=== PATIENT | female | born 1965 | race Caucasian/White ===

== ENCOUNTER 2022-06-01 16:54 | Emergency (ER) | payer OTHER ==
[~2022-06-01] VITALS: Ht 154.9 cm; Wt 60.8 kg
[~2022-06-01 16:54] MED LIST: LACT1CAP92 PO; LEVO-481 PO; METF-713; VITB12I; [UNRECOGNIZED DRUG - CODE]
[2022-06-01 17:18] VITALS: BP 166/64
--- NOTE | 2022-06-01 17:30 | NUR ---
56 Y/O FEMALE BIB SELF C/O UTI S/S BURNING URINATION, FREQUENT URINATION, NAUSEA AND VOMITING X 3DAYS. DENIES ANY ABD PAIN, DENIES ANY MEDICATION FOR PAIN. DENIES ANY BLOOD IN URINE OR VOMITUS. ALLERGY: NKA PMH: DM, HDL
[2022-06-01] MEDS ORDERED: ONDANSETRON 4 MG/2 ML VIAL IVP SCH (18:15)
[2022-06-01] MEDS ORDERED: KETOROLAC 30 MG/ML VIAL IVP SCH (18:15)
[2022-06-01] MEDS ORDERED: NACL 0.9% 1,000 ML IV ONE ×2 (18:15→18:55)
--- NOTE | 2022-06-01 18:31 | NUR ---
PT WALKED WITH STEADY GAIT TO BED 6.
[2022-06-01 18:32] LABS: BASOPHILS % (AUTO) 0.4 % (0.0-2.0); EOSINOPHILS % (AUTO) 0.5 % (0.0-4.0); HEMATOCRIT 35.7 % (36-48); HEMOGLOBIN 12.2 g/dL (12.0-16.0); LYMPHOCYTES # (AUTO) 2.7 K/uL (2.5-16.5); LYMPHOCYTES % (AUTO) 29.8 % (20.5-51.1); MEAN CORPUSCULAR HEMOGLOBIN 29 pg (27-31); MEAN CORPUSCULAR HGB CONC 34 g/dL (33-37); MEAN CORPUSCULAR VOLUME 85.6 fL (80-94); MONOCYTES # (AUTO) 0.4 K/uL (0.8-1.0); MONOCYTES % (AUTO) 4.9 % (1.7-9.3); NEUTROPHILS # (AUTO) 5.8 K/uL (1.8-7.7); NEUTROPHILS % (AUTO) 64.4 % (42.2-75.2); PLATELET COUNT (AUTO) 294 K/uL (140-450); RED BLOOD CELL COUNT(AUTO) 4.16 MIL/uL (4.20-5.40); WHITE BLOOD COUNT (AUTO) 9.1 K/uL (4.8-10.8)
--- NOTE | 2022-06-01 18:35 | NUR ---
56YO FEMALE PT C/O BURNING 7/10 LOWER ABDOMINAL AND BACK PAIN X4 DAYS. PT STATES BURNING DYSURIA , DENIES BLOOD. STATES VOMITING YESTERDAY AND X2 TODAY ,DENIES BLOOD. DENIES DIARRHEA , CHEST PAIN OR SOB. DENIES RELIEF AFTER TAKING TRAMADOL. REPORTS REOCCURING KIDNEY STONES AND HAS PENDING APPT W/ UROLOGIST IN JUL BUT CAME TO ER DUE TO INCREASED PAIN. ABDOMEN PRESENTS BLOATED AND TENDER TO TOUCH, ACTIVE X4. BACK NON TENDER TO TOUCH. PT AAOX4, NO VISIBLE DISTRESS. RESPIRATIONS EVEN AND UNLABORED. HOB POSITIONED PER COMFORT, BED AT LOWEST POSITION, BED HX: DIABETES NKA
--- NOTE | 2022-06-01 18:41 | NUR ---
PT TAKEN TO CT VIA WHEELCHAIR
--- NOTE | 2022-06-01 18:51 | NUR ---
PT BROGHT BACK FROM CT VIA WHEELCHAIR
[2022-06-01 19:00] LABS: ALBUMIN 3.5 g/dL (3.4-5.0); ANION GAP 11.6 (8-16); CARBON DIOXIDE 28.4 mmol/L (21-32); CREATININE 0.9 mg/dL (0.6-1.3); TOTAL BILIRUBIN 0.3 mg/dL (0.0-1.0)
[2022-06-01 19:04] LABS: APPEARANCE,URINE SL CLOUDY (CLEAR); BILIRUBIN,URINE NEGATIVE (NEGATIVE); BLOOD, URINE 2+ (NEGATIVE); COLOR,URINE YELLOW (YELLOW); PH,URINE 8.5 (5.0-9.0); UGLUCOSE NEGATIVE (NEGATIVE)
[2022-06-01 19:05] LABS: LEUKOCYTE ESTERASE ,URINE 3+ (NEGATIVE); NITRITE, URINE NEGATIVE (NEGATIVE)
--- NOTE | 2022-06-01 19:15 | NUR ---
RECIEVED REPORT FROM RENEE CAGE
--- NOTE | 2022-06-01 19:25 | NUR ---
REPORT GIVEN TO CHETAN CAGE. TRANSFER OF CARE AT THIS TIME
[2022-06-01] MEDS ORDERED: METOCLOPRAMIDE 10 MG/2 ML INJ VIAL IVP ONE (19:30)
--- NOTE | 2022-06-01 19:30 | NUR ---
PT RESTING IN BED ON BEDSIDE JUMPBASTING FACING BASTER. PT C/O ABD PAIN N/V X1 DAY. PAIN LEVEL /. DENIES DIARRHEA OR FEVER . DENIES CP OR SOB. PT IN FRISIAN SPEAKING. HOB ELEVATED. SIDE RAIL UP X1. PENDING DC PAPERWORK. NKDA DM KIDNEY STONES
[2022-06-01] MEDS ORDERED: CIPR500T4 PO (19:34)
[2022-06-01] MEDS ORDERED: PHEN-1877 PO (19:34)
[2022-06-01 19:37] LABS: TRICHOMONAS,URINE None Seen /HPF (None Seen); YEAST,URINE None Seen /HPF (None Seen)
[2022-06-01] MEDS ORDERED: cefTRIAXone 1,000 MG VIAL ONE (20:10)
[2022-06-01 21:16] VITALS: BP 134/54
--- NOTE | 2022-06-01 21:16 | NUR ---
Patient discharged with v/s stable. Written and verbal after care instructions given and explained. Patient alert, oriented and verbalized understanding of instructions. Ambulatory with steady gait. All questions addressed prior to discharge. ID band removed. Patient advised to follow up with PMD. Rx of CIPRO PYRIDUIM given.
--- NOTE | 2022-06-01 21:23 | NUR ---
The patient's care was reviewed and supervised by Felicity Gonzalze RN.
== END 2022-06-01 21:16 | disposition home or self-care (01) ==
LOC: MED 16:54
DX: N39.0 Urinary tract infection, site not specified (principal); R11.2 Nausea with vomiting, unspecified; E11.9 Type 2 diabetes mellitus without complications; Z79.84 Long term (current) use of oral hypoglycemic drugs; Z79.899 Other long term (current) drug therapy
CPT/HCPCS: 36415; 74176; 80053; 81001; 83690; 85025; 87086; 96361; 96365; 96375; 99285; J0696; J1885; J2405; J2765; J7030

== ENCOUNTER 2022-12-15 11:58 | Emergency (ER) | payer OTHER ==
[~2022-12-15] VITALS: Ht 157.5 cm; Wt 59.4 kg
[~2022-12-15 11:58] MED LIST changes: +CIPR500T4 PO; +PHEN-1877 PO
[2022-12-15 12:14] VITALS: BP 150/77
[2022-12-15 13:41] LABS: APPEARANCE,URINE CLEAR (CLEAR); BILIRUBIN,URINE NEGATIVE (NEGATIVE); BLOOD, URINE TRACE-I (NEGATIVE); COLOR,URINE YELLOW (YELLOW); LEUKOCYTE ESTERASE ,URINE 2+ (NEGATIVE); NITRITE, URINE NEGATIVE (NEGATIVE); UGLUCOSE 3+ (NEGATIVE)
[2022-12-15 13:54] LABS: RBC,URINE 0-5 /HPF (0-5); WBC,URINE 80-100 /HPF (0-5)
[2022-12-15 15:00] LABS: BASOPHILS # (AUTO) 0.1 K/uL (0.00-0.22); BASOPHILS % (AUTO) 0.9 % (0.0-2.0); EOSINOPHILS # (AUTO) 0.1 K/uL (0-0.4); EOSINOPHILS % (AUTO) 1.4 % (0.0-4.0); HEMATOCRIT 37.2 % (36-48); HEMOGLOBIN 12.3 g/dL (12.0-16.0); LYMPHOCYTES # (AUTO) 3.6 K/uL (2.5-16.5); LYMPHOCYTES % (AUTO) 46.5 % (20.5-51.1); MEAN CORPUSCULAR HEMOGLOBIN 28 pg (27-31); MEAN CORPUSCULAR HGB CONC 33 g/dL (33-37); MEAN CORPUSCULAR VOLUME 84.6 fL (80-94); MONOCYTES # (AUTO) 0.3 K/uL (0.8-1.0); MONOCYTES % (AUTO) 3.6 % (1.7-9.3); NEUTROPHILS # (AUTO) 3.7 K/uL (1.8-7.7); NEUTROPHILS % (AUTO) 47.6 % (42.2-75.2); PLATELET COUNT (AUTO) 351 K/uL (140-450); RED CELL DISTRIBUTION WIDTH 13.9 % (11.6-13.7); WHITE BLOOD COUNT (AUTO) 7.7 K/uL (4.8-10.8)
[2022-12-15 15:25] LABS: ALBUMIN 3.9 g/dL (3.4-5.0); ANION GAP 14.3 (8-16); CARBON DIOXIDE 24.8 mmol/L (21-32); CREATININE 1.3 mg/dL (0.6-1.3); POTASSIUM 4.1 mmol/L (3.5-5.1); TOTAL BILIRUBIN 0.3 mg/dL (0.0-1.0)
[2022-12-15] MEDS ORDERED: cefTRIAXone 1,000 MG in LIDOCAINE MPF 1% 2.1 ML IM ONE (16:25)
[2022-12-15] MEDS ORDERED: oxyCODONE/APAP 5/325 MG 1 TAB TAB PO ONE (16:25)
[2022-12-15] MEDS ORDERED: ONDANSETRON 4 MG ODT PO ONE (16:25)
[2022-12-15] MEDS ORDERED: CEPH-588 PO (16:46)
[2022-12-15] MEDS ORDERED: ACET-10509 PO (16:46)
[2022-12-15] MEDS ORDERED: ACET-5629 PO (16:46)
[2022-12-15] MEDS ORDERED: ONDA-188 PO (16:46)
[2022-12-15] MEDS ORDERED: PYR100 PO (16:46)
[2022-12-15] MEDS ORDERED: cefTRIAXone 1,000 MG VIAL ONE (17:02)
--- NOTE | 2022-12-15 17:13 | NUR ---
ASSUMED PATIENT CARE FOR DC INSTRUCTIONS, Patient discharged with v/s stable. Written and verbal after care instructions given and explained. Patient alert, oriented and verbalized understanding of instructions. Ambulatory with steady gait. All questions addressed prior to discharge. ID band removed. Patient advised to follow up with PMD. Rx of TYLENOL, PERCOCET, KEFLEX, ZOFRAN, PYRIDIUM given. Patient educated on indication of medication including possible reaction and side effects. Opportunity to ask questions provided and answered.
[2022-12-15 17:14] VITALS: BP 144/65
== END 2022-12-15 17:13 | disposition home or self-care (01) ==
LOC: MED 11:58
DX: N12 Tubulo-interstitial nephritis, not specified as acute or chronic (principal); E11.65 Type 2 diabetes mellitus with hyperglycemia; K82.9 Disease of gallbladder, unspecified; Z79.899 Other long term (current) drug therapy; Z90.710 Acquired absence of both cervix and uterus; Z98.890 Other specified postprocedural states
CPT/HCPCS: 36415; 74176; 80053; 81001; 83690; 85025; 87086; 96372; 99285; J0696; Q0162

== ENCOUNTER 2023-03-06 13:21 | Inpatient (IN) | payer OTHER ==
[~2023-03-06] VITALS: Ht 157.5 cm; Wt 64.9 kg
[~2023-03-06 13:21] MED LIST changes: +ACET-10509 PO; +ACET-5629 PO; +CEPH-588 PO; +ONDA-188 PO; +PYR100 PO
[2023-03-06 13:25] VITALS: BP 133/85; PULSE 93; RESP 18; TEMP 97.7; O2SAT 100
--- NOTE | 2023-03-06 13:33 | NUR ---
pt ambulatory to bed 12 accompanied by daughter
--- NOTE | 2023-03-06 13:35 | NUR ---
pt daughter cale phone number [facility] [phone], or Scott kelley [phone]
[2023-03-06 13:57] LABS: APPEARANCE,URINE CLEAR (CLEAR); BILIRUBIN,URINE NEGATIVE (NEGATIVE); BLOOD, URINE 3+ (NEGATIVE); COLOR,URINE YELLOW (YELLOW); LEUKOCYTE ESTERASE ,URINE 2+ (NEGATIVE); NITRITE, URINE NEGATIVE (NEGATIVE); UGLUCOSE NEGATIVE (NEGATIVE)
[2023-03-06 14:11] LABS: BASOPHILS # (AUTO) 0.1 K/uL (0.00-0.22); BASOPHILS % (AUTO) 0.6 % (0.0-2.0); EOSINOPHILS # (AUTO) 0.1 K/uL (0-0.4); EOSINOPHILS % (AUTO) 0.5 % (0.0-4.0); HEMATOCRIT 35.9 % (36-48); LYMPHOCYTES # (AUTO) 2.2 K/uL (2.5-16.5); LYMPHOCYTES % (AUTO) 16.9 % (20.5-51.1); MEAN CORPUSCULAR HEMOGLOBIN 29 pg (27-31); MEAN CORPUSCULAR HGB CONC 33 g/dL (33-37); MEAN CORPUSCULAR VOLUME 85.4 fL (80-94); MONOCYTES # (AUTO) 0.3 K/uL (0.8-1.0); MONOCYTES % (AUTO) 2.2 % (1.7-9.3); NEUTROPHILS # (AUTO) 10.4 K/uL (1.8-7.7); NEUTROPHILS % (AUTO) 79.8 % (42.2-75.2); PLATELET COUNT (AUTO) 369 K/uL (140-450); RED CELL DISTRIBUTION WIDTH 13.9 % (11.6-13.7)
[2023-03-06 14:17] LABS: RBC,URINE 20-50 /HPF (0-5)
[2023-03-06 14:23] LABS: ALBUMIN 3.5 g/dL (3.4-5.0); CARBON DIOXIDE 26.6 mmol/L (21-32); POTASSIUM 4.6 mmol/L (3.5-5.1); TOTAL BILIRUBIN 0.2 mg/dL (0.0-1.0)
[2023-03-06] MEDS ORDERED: ONDANSETRON 4 MG/2 ML VIAL IVP ONE ×2 (14:25→18:00)
[2023-03-06] MEDS ORDERED: MORPHINE SULFATE 4 MG/ML SYR IVP ONE (14:25)
[2023-03-06] MEDS ORDERED: NACL 0.9% 1,000 ML IV ONE ×2 (14:25→15:55)
[2023-03-06] MEDS ORDERED: MORPHINE SULFATE 4 MG/ML SYR IM ONE (14:25)
[2023-03-06] MEDS ORDERED: cefTRIAXone 1,000 MG VIAL ONE (17:45)
[2023-03-06] MEDS ORDERED: MORPHINE SULFATE 2 MG/ML SYR IVP ONE (18:00)
--- NOTE | 2023-03-06 19:31 | NUR ---
pt is malay speaker and resting on the bed. pt denies pain.
--- NOTE | 2023-03-06 19:45 | NUR ---
accucheck 111
--- NOTE | 2023-03-06 19:46 | NUR ---
is at the bedside
[2023-03-06] MEDS: NACL 0.9% 1,000 ML IV SCH (20:50)
[2023-03-06] MEDS ORDERED: ACETAMINOPHEN 325 MG TAB PO PRN (20:50)
[2023-03-06] MEDS ORDERED: MORPHINE SULFATE 2 MG/ML SYR IVP PRN (20:50)
[2023-03-06] MEDS ORDERED: LORazepam 2 MG/ML VIAL IVP PRN (20:50)
[2023-03-06] MEDS ORDERED: ONDANSETRON 4 MG/2 ML VIAL IVP PRN (20:50)
[2023-03-06] MEDS ORDERED: OMEP20EC11 PO (22:05)
[2023-03-06] MEDS ORDERED: SIMV-371 PO (22:05)
[2023-03-06] MEDS ORDERED: EZET10TA14 PO (22:05)
[2023-03-06] MEDS ORDERED: INSU10SU2 SC (22:05)
--- NOTE | 2023-03-06 23:15 | NUR ---
RECEIVED CALL FROM ER NURSE DEO CABRALES. "COMING WITH PT FOR 119B. PYELONEPHRITIS JENAE, WILL GIVE REPORT UPON ARRIVAL"
[2023-03-06 23:30] VITALS: PULSE 91
--- NOTE | 2023-03-06 23:30 | NUR ---
RECEIVED PT FROM ER VIA [facility] TO 119B. DX: PYELONEPHRITIS; CHIEF C/0: ABD PAIN MIDLINE RADIATING TO BACK X 4 DAYS, NOW 4/10 TO 3/10 AND TOLERABLE. NAUSEA WITHOUT EMESIS. HX: UTI, DIABETES MELITIS, KIDNEY STONES. A/OX4. WELSH SPEAKING. MINIMAL INDONESIAN COMPREHENSION.DENIES CHEST PAIN. 20 GA RAC/SL. ENDORSED TO HANG NS @ 125ML. CONTINENT OF BOWEL AND BLADDER. AMBULATES INDEPENDENT, SLOW AND STEADY. ORIENTED TO ROOM AND PROTOCOL AT THIS TIME. BED IN LOWEST POSITION AND LOCKED.VS [id number]/42-99% RA. ADMITTED PER SERVICES OF [facility]NA[facility]. ASSUMED CARE OF PT AT THIS TIME.
[2023-03-07] VITALS: BP 117/42; PULSE 96; RESP 16; TEMP 98.4; O2SAT 99
--- NOTE | 2023-03-07 | NUR ---
Patient will be admitted to care of [facility]. Admited to TELEMETRY . Will go to room 119 a. Belongings list completed. Report to ISAIAH .
--- NOTE | 2023-03-07 01:10 | NUR ---
STARTED IV FLUIDS NS 125 ML/H. BLOOD SUGAR 133 AFTER 3 CRANBERRY JUICES. REFUSED PAIN MED. STATED ONLY "POKITO PAIN 3" CONT TO MONITOR AND ASSIST.
[2023-03-07] MEDS: NACL 0.9% 1,000 ML IV SCH ×2 (01:32→09:43)
[2023-03-07 04:00] VITALS: BP 120/62; PULSE 84; PULSE 95; RESP 18; TEMP 98.6; O2SAT 94
[2023-03-07 05:10] LABS: BASOPHILS % (AUTO) 0.3 % (0.0-2.0); EOSINOPHILS % (AUTO) 0.1 % (0.0-4.0); HEMATOCRIT 30.9 % (36-48); HEMOGLOBIN 10.3 g/dL (12.0-16.0); LYMPHOCYTES # (AUTO) 2.6 K/uL (2.5-16.5); LYMPHOCYTES % (AUTO) 21.3 % (20.5-51.1); MEAN CORPUSCULAR HEMOGLOBIN 29 pg (27-31); MEAN CORPUSCULAR HGB CONC 33 g/dL (33-37); MONOCYTES # (AUTO) 0.5 K/uL (0.8-1.0); MONOCYTES % (AUTO) 3.9 % (1.7-9.3); NEUTROPHILS # (AUTO) 9.1 K/uL (1.8-7.7); NEUTROPHILS % (AUTO) 74.4 % (42.2-75.2); PLATELET COUNT (AUTO) 289 K/uL (140-450); RED BLOOD CELL COUNT(AUTO) 3.59 MIL/uL (4.20-5.40); RED CELL DISTRIBUTION WIDTH 14.2 % (11.6-13.7); WHITE BLOOD COUNT (AUTO) 12.2 K/uL (4.8-10.8)
[2023-03-07 05:50] LABS: ALBUMIN 2.6 g/dL (3.4-5.0); ANION GAP 11.5 (8-16); CARBON DIOXIDE 24.8 mmol/L (21-32); MAGNESIUM 1.6 mg/dL (1.8-2.4); POTASSIUM 4.3 mmol/L (3.5-5.1); TOTAL BILIRUBIN 0.3 mg/dL (0.0-1.0)
--- NOTE | 2023-03-07 07:20 | NUR ---
RECEIVED ENDORSEMENT FROM ART CLASS MODEL NURSE FOR CONTINUITY OF CARE. PT IS AWAKE, NO SIGN OF DISTRESS. CALL LIGHT WITHIN REACH. MNURUM
[2023-03-07 08:00] VITALS: BP 110/47; PULSE 87; PULSE 91; RESP 18; RESP 22; TEMP 100.3; O2SAT 93
[2023-03-07 12:00] VITALS: BP 142/55; PULSE 89; PULSE 99; RESP 22; TEMP 99.6; O2SAT 98
[2023-03-07] MEDS ORDERED: DEXTROSE 50% 50 ML SYR IVP PRN (12:15)
[2023-03-07] MEDS ORDERED: INSULIN LISPRO SLIDING SCALE 100 UNITS/ML VIAL SUBQ PRN (12:15)
[2023-03-07] MEDS ORDERED: MAG SULF 2000 MG/WATER PREMIX 50 ML IV SCH (13:00)
[2023-03-07] MEDS ORDERED: CEPH-588 PO (15:18)
[2023-03-07 16:00] VITALS: BP 121/57; PULSE 83; PULSE 84; RESP 18; TEMP 98.2; O2SAT 96
[2023-03-07 16:23] VITALS: BP 121/57; PULSE 84; RESP 18; TEMP 98.2
[2023-03-07] MEDS ORDERED: BLOOD GLUCOSE MONITORING 1 DEV DEV FS SCH (16:30)
== END 2023-03-07 18:27 | disposition home or self-care (01) | DRG 463 ==
LOC: MED 13:21 → MTU 20:51
PROVIDERS: ADMIT Hospitalist; ATTEND Hospitalist
DX: N12 Tubulo-interstitial nephritis, not specified as acute or chronic (principal); E87.20 Acidosis, unspecified; R65.10 Systemic inflammatory response syndrome (SIRS) of non-infectious origin without acute organ dysfunction; E11.9 Type 2 diabetes mellitus without complications; R30.0 Dysuria; Z20.822 Contact with and (suspected) exposure to COVID-19; Z79.899 Other long term (current) drug therapy; Z83.3 Family history of diabetes mellitus; Z82.5 Family history of asthma and other chronic lower respiratory diseases; Z79.891 Long term (current) use of opiate analgesic; Z79.4 Long term (current) use of insulin
CPT/HCPCS: 36415; 76770; 80053; 81001; 82948; 83605; 83690; 83735; 85025; 87040; 87081; 87086; 96374; 96375; 96376; 99285; J0696; J2270; J2405; J3475; J7060; Q0092

== ENCOUNTER 2023-06-16 13:47 | Emergency (ER) | payer OTHER ==
[~2023-06-16] VITALS: Ht 160 cm; Wt 63.5 kg
[~2023-06-16 13:47] MED LIST changes: -CIPR500T4 PO; +EZET10TA84 PO; +INSU10SU2 SC; +OMEP20EC11 PO; +SIMV-371 PO
[2023-06-16 13:54] VITALS: BP 149/69; PULSE 112; RESP 18; TEMP 98.4; O2SAT 98
[2023-06-16] MEDS ORDERED: NACL 0.9% 1,000 ML IV ONE (15:00)
[2023-06-16 15:33] LABS: BASOPHILS % (AUTO) 0.2 % (0.0-2.0); EOSINOPHILS % (AUTO) 0.2 % (0.0-4.0); HEMATOCRIT 31.8 % (36-48); HEMOGLOBIN 10.7 g/dL (12.0-16.0); LYMPHOCYTES # (AUTO) 0.4 K/uL (2.5-16.5); LYMPHOCYTES % (AUTO) 5.4 % (20.5-51.1); MEAN CORPUSCULAR HEMOGLOBIN 28 pg (27-31); MEAN CORPUSCULAR HGB CONC 34 g/dL (33-37); MONOCYTES # (AUTO) 0.2 K/uL (0.8-1.0); MONOCYTES % (AUTO) 2.6 % (1.7-9.3); NEUTROPHILS % (AUTO) 91.6 % (42.2-75.2); PLATELET COUNT (AUTO) 268 K/uL (140-450); RED BLOOD CELL COUNT(AUTO) 3.79 MIL/uL (4.20-5.40); RED CELL DISTRIBUTION WIDTH 14.1 % (11.6-13.7); WHITE BLOOD COUNT (AUTO) 7.7 K/uL (4.8-10.8)
[2023-06-16 16:00] LABS: ALANINE AMINOTRANSFERASE 42 U/L (12-78); ALBUMIN 3.4 g/dL (3.4-5.0); ALKALINE PHOSPHATASE 167 U/L (50-136); ANION GAP 14.5 (8-16); ASPARTATE AMINOTRANSFERASE 27 U/L (15-37); CALCIUM 9.2 mg/dL (8.5-10.1); CARBON DIOXIDE 22.6 mmol/L (21-32); CHLORIDE 100 mmol/L (98-107); CREATININE 1.6 mg/dL (0.6-1.3); GFR ARICAN-AMERICAN 42 mL/min (>90); GFR NON ARICAN-AMERICAN 35 mL/min (>90); GLUCOSE 159 mg/dL (74-106); POTASSIUM 4.1 mmol/L (3.5-5.1); SODIUM SERUM 133 mmol/L (136-145); TOTAL BILIRUBIN 0.3 mg/dL (0.0-1.0); TOTAL PROTEIN, SERUM 8.3 g/dL (6.4-8.2); UREA NITROGEN, BLOOD 15 mg/dL (7-18)
[2023-06-16] MEDS ORDERED: CEPH500C16 PO (19:34)
[2023-06-16 19:36] LABS: APPEARANCE,URINE HAZY (CLEAR); BILIRUBIN,URINE NEGATIVE (NEGATIVE); BLOOD, URINE 2+ (NEGATIVE); COLOR,URINE YELLOW (YELLOW); LEUKOCYTE ESTERASE ,URINE 2+ (NEGATIVE); NITRITE, URINE POSITIVE (NEGATIVE); PH,URINE 6.5 (5.0-9.0); PROTEIN,URINE 1+ (NEGATIVE); UGLUCOSE 3+ (NEGATIVE); UROBILINOGEN,URINE 0.2 EU/dL (0.2 - 1)
[2023-06-16 19:48] LABS: BACTERIA,URINE 3+ /HPF (None Seen); RBC,URINE TOO NUMEROUS TO COUN /HPF (0-5); WBC,URINE TOO MANY TO COUNT /HPF (0-5)
[2023-06-16] MEDS ORDERED: cefTRIAXone 1,000 MG VIAL ONE (19:48)
[2023-06-16 19:49] LABS: SQUAMOUS EPITHELIAL CELL,UR None Seen /LPF (0-3 (FEW))
[2023-06-16] MEDS ORDERED: ACETAMINOPHEN EXTRA STRENGTH 500 MG TAB PO ONE (19:50)
[2023-06-16] MEDS ORDERED: KETOROLAC 15 MG/ML VIAL IVP ONE (19:50)
[2023-06-16 20:45] VITALS: BP 132/71; PULSE 90; RESP 16; TEMP 98; O2SAT 97
[2023-06-19] MEDS ORDERED: SULF-59 PO (10:52)
== END 2023-06-16 20:45 | disposition home or self-care (01) ==
LOC: MED 13:47
DX: N12 Tubulo-interstitial nephritis, not specified as acute or chronic (principal); Z20.822 Contact with and (suspected) exposure to COVID-19; R05.9 Cough, unspecified; R07.9 Chest pain, unspecified; E11.9 Type 2 diabetes mellitus without complications; I10 Essential (primary) hypertension; Z79.4 Long term (current) use of insulin; Z79.899 Other long term (current) drug therapy
CPT/HCPCS: 36415; 71045; 71275; 74174; 80053; 81001; 84484; 85025; 87086; 87426; 93005; 96361; 96365; 96375; 99285; J0696; J1885; Q0092; Q9967

== ENCOUNTER 2023-11-16 21:58 | Emergency (ER) | payer OTHER ==
[~2023-11-16] VITALS: Ht 157.5 cm; Wt 66.2 kg
[~2023-11-16 21:58] MED LIST changes: +CEPH500C16 PO; +SULF-59 PO
[2023-11-16 22:03] VITALS: BP 104/67; PULSE 89; RESP 16; TEMP 97.4; O2SAT 98
[2023-11-16] MEDS: KETOROLAC 60 MG/2 ML VIAL IM ONE (22:50)
[2023-11-16] MEDS ORDERED: IBUP-2213 PO (22:52)
[2023-11-16] MEDS ORDERED: ONDA8TAB87 PO (22:52)
[2023-11-16] MEDS ORDERED: CIPR500T4 PO (22:52)
[2023-11-16 22:59] VITALS: BP 135/82; PULSE 88; RESP 20; TEMP 98.9
[2023-11-20] MEDS ORDERED: DAPA5TAB PO (12:28)
[2023-11-20] MEDS ORDERED: METO10TA11 PO (13:20)
== END 2023-11-16 23:00 | disposition home or self-care (01) ==
LOC: MED 21:58
DX: N12 Tubulo-interstitial nephritis, not specified as acute or chronic (principal); I10 Essential (primary) hypertension; Z79.899 Other long term (current) drug therapy
CPT/HCPCS: 81002; 96372; 99283; J1885

== ENCOUNTER 2023-11-21 15:17 | Emergency (ER) | payer OTHER ==
[~2023-11-21] VITALS: Ht 157.5 cm; Wt 63.5 kg
[~2023-11-21 15:17] MED LIST changes: -CEPH-588 PO; -CEPH500C16 PO; +DAPA5TAB PO; -LEVO-481 PO; +METO10TA11 PO; +ONDA8TAB87 PO; -PHEN-1877 PO; -PYR100 PO; -SULF-59 PO
[2023-11-21 15:26] VITALS: BP 157/72; PULSE 93; RESP 18; TEMP 97.8; O2SAT 99
[2023-11-21 17:06] LABS: BASOPHILS % (AUTO) 0.7 % (0.0-2.0); EOSINOPHILS # (AUTO) 0.1 K/uL (0-0.4); EOSINOPHILS % (AUTO) 1.1 % (0.0-4.0); HEMATOCRIT 27.4 % (36-48); HEMOGLOBIN 9.4 g/dL (12.0-16.0); LYMPHOCYTES # (AUTO) 1.8 K/uL (2.5-16.5); LYMPHOCYTES % (AUTO) 30.8 % (20.5-51.1); MEAN CORPUSCULAR HEMOGLOBIN 29 pg (27-31); MEAN CORPUSCULAR HGB CONC 34 g/dL (33-37); MEAN CORPUSCULAR VOLUME 85.9 fL (80-94); MONOCYTES # (AUTO) 0.4 K/uL (0.8-1.0); MONOCYTES % (AUTO) 6.2 % (1.7-9.3); NEUTROPHILS # (AUTO) 3.6 K/uL (1.8-7.7); NEUTROPHILS % (AUTO) 61.2 % (42.2-75.2); PLATELET COUNT (AUTO) 268 K/uL (140-450); RED BLOOD CELL COUNT(AUTO) 3.19 MIL/uL (4.20-5.40); RED CELL DISTRIBUTION WIDTH 13.5 % (11.6-13.7); WHITE BLOOD COUNT (AUTO) 5.8 K/uL (4.8-10.8)
[2023-11-21 17:21] LABS: INR 0.85 (0.8-1.2); PARTIAL THROMBOPLASTIN TIME 26.8 secs (22-35.6)
[2023-11-21 17:22] LABS: ANION GAP 15.1 (8-16); CALCIUM 8.9 mg/dL (8.5-10.1); CREATININE 1.7 mg/dL (0.6-1.3); POTASSIUM 4.1 mmol/L (3.5-5.1)
[2023-11-21 18:12] LABS: LACTIC ACID 0.8 mmol/L (0.4-2.0)
[2023-11-21] MEDS ORDERED: SULF-59 PO (18:16)
[2023-11-21] MEDS: SULFAMETH/TRIMETH DS 800/160MG 1 TAB PO ONE (18:30)
[2023-11-21 18:33] VITALS: O2SAT 99
== END 2023-11-21 18:31 | disposition home or self-care (01) ==
LOC: MED 15:17
DX: N39.0 Urinary tract infection, site not specified (principal); B96.20 Unspecified Escherichia coli [E. coli] as the cause of diseases classified elsewhere; Z16.24 Resistance to multiple antibiotics; E11.22 Type 2 diabetes mellitus with diabetic chronic kidney disease; I12.9 Hypertensive chronic kidney disease with stage 1 through stage 4 chronic kidney disease, or unspecified chronic kidney disease; N18.9 Chronic kidney disease, unspecified; Z79.899 Other long term (current) drug therapy; Z79.4 Long term (current) use of insulin
CPT/HCPCS: 36415; 80048; 83605; 85025; 85610; 85730; 87040; 99283

== ENCOUNTER 2024-04-15 13:56 | Emergency (ER) | payer OTHER ==
[~2024-04-15] VITALS: Ht 157.5 cm; Wt 64.1 kg
[~2024-04-15 13:56] MED LIST changes: +SULF-59 PO
[2024-04-15 14:11] VITALS: BP 127/63; PULSE 87; RESP 18; TEMP 98.6; O2SAT 98
[2024-04-15 15:05] LABS: APPEARANCE,URINE CLEAR (CLEAR); BILIRUBIN,URINE NEGATIVE (NEGATIVE); BLOOD, URINE NEGATIVE (NEGATIVE); COLOR,URINE YELLOW (YELLOW); LEUKOCYTE ESTERASE ,URINE TRACE (NEGATIVE); NITRITE, URINE NEGATIVE (NEGATIVE); PROTEIN,URINE NEGATIVE (NEGATIVE); UGLUCOSE 3+ (NEGATIVE); UROBILINOGEN,URINE 0.2 EU/dL (0.2 - 1)
[2024-04-15 15:22] LABS: BACTERIA,URINE 10-30 (MOD) /HPF (None Seen); RBC,URINE 0-5 /HPF (0-5); SQUAMOUS EPITHELIAL CELL,UR 0-3 (FEW) /LPF (0-3 (FEW))
[2024-04-15] MEDS ORDERED: SULF-59 PO (15:44)
[2024-04-15 15:55] VITALS: BP 133/65; PULSE 78; RESP 18; TEMP 98.6; O2SAT 98
[2024-04-15] MEDS: SULFAMETH/TRIMETH DS 800/160MG 1 TAB PO ONE (15:55)
== END 2024-04-15 15:58 | disposition home or self-care (01) ==
LOC: MED 13:56
DX: N39.0 Urinary tract infection, site not specified (principal); R51.9 Headache, unspecified; R11.2 Nausea with vomiting, unspecified; M54.50 Low back pain, unspecified; M79.604 Pain in right leg; M79.605 Pain in left leg; E11.22 Type 2 diabetes mellitus with diabetic chronic kidney disease; I12.9 Hypertensive chronic kidney disease with stage 1 through stage 4 chronic kidney disease, or unspecified chronic kidney disease; N18.9 Chronic kidney disease, unspecified; E78.5 Hyperlipidemia, unspecified; Z79.899 Other long term (current) drug therapy; Z79.4 Long term (current) use of insulin
CPT/HCPCS: 81001; 87086; 87186; 99283

== ENCOUNTER 2024-05-10 16:08 | Emergency (ER) | payer OTHER ==
[~2024-05-10] VITALS: Ht 157.5 cm; Wt 64.0 kg
[2024-05-10 16:12] VITALS: BP 143/61; PULSE 100; RESP 22; TEMP 98.5; O2SAT 97
[2024-05-10 17:12] LABS: FLU A ANTIGEN negative (NEGATIVE); FLU B ANTIGEN NEGATIVE (NEGATIVE)
[2024-05-10] MEDS ORDERED: BENZ-300 PO (17:21)
[2024-05-10] MEDS ORDERED: ALBU0.0912 IH (17:21)
[2024-05-10] MEDS ORDERED: ACET-10509 PO (17:21)
[2024-05-10] MEDS ORDERED: BENZ200C4 PO (17:21)
[2024-05-10 17:36] VITALS: BP 179/66; PULSE 90; RESP 28; TEMP 98.5; O2SAT 97
== END 2024-05-10 17:36 | disposition home or self-care (01) ==
LOC: MED 16:08
DX: U07.1 COVID-19 (principal); E11.22 Type 2 diabetes mellitus with diabetic chronic kidney disease; I12.9 Hypertensive chronic kidney disease with stage 1 through stage 4 chronic kidney disease, or unspecified chronic kidney disease; N18.9 Chronic kidney disease, unspecified; E78.5 Hyperlipidemia, unspecified; Z79.899 Other long term (current) drug therapy; Z79.4 Long term (current) use of insulin
CPT/HCPCS: 71045; 87426; 87804; 99284; Q0092

== ENCOUNTER 2024-06-13 13:06 | Emergency (ER) | payer OTHER ==
[~2024-06-13] VITALS: Ht 157.5 cm; Wt 63.5 kg
[~2024-06-13 13:06] MED LIST changes: -ACET-10509 PO; +ACET500T99 PO; +ALBU0.0912 IH; +BENZ-300 PO; +BENZ200C4 PO
[2024-06-13 13:22] VITALS: BP 121/50; PULSE 74; RESP 16; TEMP 97.2; O2SAT 98
[2024-06-13 14:06] LABS: APPEARANCE,URINE CLEAR (CLEAR); BILIRUBIN,URINE 1+ (NEGATIVE); BLOOD, URINE 3+ (NEGATIVE); COLOR,URINE YELLOW (YELLOW); LEUKOCYTE ESTERASE ,URINE 1+ (NEGATIVE); NITRITE, URINE POSITIVE (NEGATIVE); PROTEIN,URINE 2+ (NEGATIVE); UGLUCOSE 3+ (NEGATIVE); UROBILINOGEN,URINE 0.2 EU/dL (0.2 - 1)
[2024-06-13] MEDS ORDERED: ACETAMINOPHEN 325 MG TAB PO ONE (14:15)
[2024-06-13 14:23] LABS: ICTOTEST NEGATIVE (NEGATIVE)
[2024-06-13 14:24] LABS: BACTERIA,URINE 10-30 (MOD) /HPF (None Seen); RBC,URINE 11-20 (MOD) /HPF (0-5); SQUAMOUS EPITHELIAL CELL,UR 0-3 (FEW) /LPF (0-3 (FEW))
[2024-06-13 14:30] LABS: BASOPHILS % (AUTO) 0.5 % (0.0-2.0); EOSINOPHILS # (AUTO) 0.1 K/uL (0-0.4); EOSINOPHILS % (AUTO) 1.9 % (0.0-4.0); HEMATOCRIT 31.8 % (36-48); HEMOGLOBIN 10.7 g/dL (12.0-16.0); LYMPHOCYTES # (AUTO) 3.4 K/uL (2.5-16.5); LYMPHOCYTES % (AUTO) 55.2 % (20.5-51.1); MEAN CORPUSCULAR HEMOGLOBIN 29 pg (27-31); MEAN CORPUSCULAR HGB CONC 34 g/dL (33-37); MEAN CORPUSCULAR VOLUME 87.2 fL (80-94); MONOCYTES # (AUTO) 0.2 K/uL (0.8-1.0); NEUTROPHILS # (AUTO) 2.4 K/uL (1.8-7.7); NEUTROPHILS % (AUTO) 38.4 % (42.2-75.2); PLATELET COUNT (AUTO) 265 K/uL (140-450); RED BLOOD CELL COUNT(AUTO) 3.65 MIL/uL (4.20-5.40); RED CELL DISTRIBUTION WIDTH 13.7 % (11.6-13.7); WHITE BLOOD COUNT (AUTO) 6.2 K/uL (4.8-10.8)
[2024-06-13 14:40] LABS: ANION GAP 9.7 (8-16); CALCIUM 8.7 mg/dL (8.5-10.1); CARBON DIOXIDE 28.3 mmol/L (21-32); CREATININE 1.2 mg/dL (0.6-1.3)
[2024-06-13 15:05] LABS: ALBUMIN 3.6 g/dL (3.4-5.0); BILIRUBIN,DIRECT 0.1 mg/dL (0.0-0.3); TOTAL BILIRUBIN 0.3 mg/dL (0.0-1.0); TOTAL PROTEIN, SERUM 7.7 g/dL (6.4-8.2)
[2024-06-13] MEDS: ACETAMINOPHEN 325 MG TAB PO SCH (15:06)
[2024-06-13] MEDS: ACETAMINOPHEN EXTRA STRENGTH 500 MG TAB PO STA (15:09)
[2024-06-13] MEDS ORDERED: IBUP-2213 PO (15:24)
[2024-06-13] MEDS ORDERED: CEPH-588 PO (15:24)
[2024-06-13] MEDS ORDERED: PYR100 PO (15:24)
[2024-06-13 15:36] VITALS: BP 124/56; PULSE 72; RESP 18; TEMP 97.6; O2SAT 98
[2024-06-16] MEDS ORDERED: NITR100C7 PO (18:18)
== END 2024-06-13 15:36 | disposition home or self-care (01) ==
LOC: MED 13:06
DX: N39.0 Urinary tract infection, site not specified (principal); M54.9 Dorsalgia, unspecified; E11.22 Type 2 diabetes mellitus with diabetic chronic kidney disease; I12.9 Hypertensive chronic kidney disease with stage 1 through stage 4 chronic kidney disease, or unspecified chronic kidney disease; N18.9 Chronic kidney disease, unspecified; Z79.4 Long term (current) use of insulin; Z79.899 Other long term (current) drug therapy
CPT/HCPCS: 36415; 80048; 80076; 81001; 83690; 85025; 87086; 87186; 99283